=== PATIENT | female | born 1965 | race Caucasian/White ===

== ENCOUNTER 2016-08-14 07:59 | Emergency (ER) | payer OTHER ==
--- NOTE | 2016-08-14 08:11 | CPEKG ---
Heart Rate: 63 RR Interval: 952 P-R Interval: 124 QRSD Interval: 96 QT Interval: 456 QTC Interval: 467 P Austin: 70 QRS Austin: 80 T Wave Austin: 74 EKG Severity - NORMAL ECG - EKG Impression: SINUS RHYTHM Electronically Signed By: Ruiz Zamora 14-Aug-2016 14:34:52
--- NOTE | 2016-08-14 08:17 | EDPHY ---
H & P Stated Complaint: C/O intermittent,charp, tight feeling across chest x several days Time Seen by Provider: 08/14/16 08:16 - Personal History LMP (Females 10-55): 22-28 Days Ago Current Tetanus Diphtheria and Acellular Pertussis (TDAP): Yes - Medical/Surgical History Other PMH: HTN - Social History Smoking Status: Never smoked Constitutional: Initial Vital Signs Temperature (C) 36.7 C 08/14/16 08:00 Heart Rate 70 08/14/16 08:00 Respiratory Rate 16 08/14/16 08:00 Blood Pressure 171/91 H 08/14/16 08:00 O2 Sat (%) 100 08/14/16 08:00 O2 Delivery Mode Room Air Allergies/Adverse Reactions: Penicillins Allergy (Intermediate, Verified 08/14/16 08:01) Hives Sulfa (Sulfonamide Antibiotics) Allergy (Intermediate, Verified 08/14/16 08:01) Hives Home Medications: Medication Instructions Recorded Losartan Potassium [Cozaar 25 mg 25 mg PO 08/14/16 (*)] Medical Decision Making ED Course/Re-evaluation: CHIEF COMPLAINT: Chest pain HISTORY OF PRESENT ILLNESS: This patient is a 51 year old female who presents to the Emergency Department complaining of two episodes of brief chest pain beginning Sunday morning. She first experienced brief sharp pains to her right upper chest while doing dishes on Sunday morning. She describes the episode as lasting for a few minutes before resolving spontaneously. She was able to go for a long bike ride that afternoon without issue. Yesterday, she began to experience a sensation of chest tightness as though "her bra was too tight" lasting for approximately 5-10 minutes. She also reports an unusual sensation to her jaw "as though I had eaten something sour" resolving at the same time. She denies dizziness, diaphoresis, or nausea with either episode. Upon presentation today, she denies any chest pain. She has mild upper back pain that she attributes to musculoskeletal soreness following her bike ride. No recent travel. She was diagnosed with hypertension four years ago and had a normal echocardiogram at that time. REVIEW OF SYSTEMS: A 10 point review of systems was performed and is negative with the exception of the elements mentioned in the history of present illness. PHYSICAL EXAM: HR 70, BP 171/91, O2 Sat 100, RR 16. Temp noted General Appearance: Alert, well hydrated, appropriate, and non-toxic appearing. Head: Atraumatic without scalp tenderness or obvious injury Eyes: Pupils equal, round, reactive to light and accommodation, EOMI, no trauma , no injection. Ears: Clear bilaterally, no perforation, normal landmarks Nose: Atraumatic, no rhinorrhea, clear. Throat: There is no erythema or exudates, no lesions, normal tonsils, mucus membranes moist. Neck: Supple, 2+ carotid upstroke, nontender, no lymphadenopathy. Respiratory: No retractions, no distress, no wheezes, and no accessory muscle use. Lungs are clear to auscultation bilaterally. Cardiovascular: Regular rate and rhythm, no murmurs, rubs, or gallops. Bilateral carotid, radial, dorsalis pedis, and posterior tibial pulses intact. Good capillary refill all extremities. Gastrointestinal: Abdomen is soft, nontender, non-distended, no masses, no rebound, no guarding, no peritoneal signs. Musculoskeletal: Normal active ROM of all extremities, atraumatic. Neurological: Alert, appropriate, and interactive. The patient has normal DTRs and non-focal cranial nerves, motor, sensory, and cerebellar exam. Skin: No rashes, good turgor, no nodules on palpation. Past medical history: Hypertension. Past surgical history: Denies. Family history: Dad with CABG at age 68. Atrial fibrillation in mother. One sibling without cardiac history. Social history: No recent travel. DIAGNOSTICS/PROCEDURES/CRITICAL CARE TIME: EKG INTERPRETATION: The 12 lead EKG was interpreted by myself: sinus rhythm, rate 63; no ST/T changes. See hard copy and/or "tracemaster" electronic copy for interpretation. DIFFERENTIAL DIAGNOSIS: The differential diagnosis for the patient's chest pain included but was not limited to myocardial ischemia, pulmonary embolus, chest wall pain, pleural inflammation, and pulmonary infectious causes. MEDICAL DECISION MAKING: This normally healthy 51 year old female presents with intermittent short- lasting chest pains beginning two days prior to arrival. Each episode was less than 10 minutes, was without associated diaphoresis or nausea. She was able to undergo a long bike ride [place] [facility] [address] to [place] on Sunday without causing recurrence of symptoms. The patient is asymptomatic at time of presentation and has remained asymptomatic since yesterday. Suspicion is low for cardiac etiology, though she does have a familial history of coronary artery disease in father. Will proceed with EKG and labs, including D-dimer, but will likely discharge with full cardiac workup as outpatient. Labs reviewed and are largely within normal ranges. D-dimer is negative. Troponin is negative. Chest x-ray reviewed by myself and is normal. 910: Consultation with Dr. Vidya Wakefield, cardiology, who is aware of the patient' s case and will follow-up with her as an outpatient this week. 926: I discussed lab and imaging results with the patient who is relieved. I discussed with her strict return precautions including recurrence of symptoms. She will be discharged home in good condition with instructions to follow-up with cardiology this week. - Data Points Laboratory Results: Laboratory Results 08/14/16 08:20 08/14/16 08:20 08/14/16 08/14/16 08/14/16 08:20 08:20 08:20 WBC 7.29 10^3/uL 10^3/uL (3.80-9.50) RBC 4.41 10^6/uL 10^6/uL (4.18-5.33) Hgb 14.0 g/dL g/dL (12.6-16.3) Hct 40.7 % % (38.0-47.0) MCV 92.3 fL fL (81.5-99.8) MCH 31.7 pg pg (27.9-34.1) MCHC 34.4 g/dL g/dL (32.4-36.7) RDW 13.4 % % (11.5-15.2) Plt Count 251 10^3/uL 10^3/uL (150-400) MPV 9.9 fL fL (8.7-11.7) Neut % (Auto) 56.1 % % (39.3-74.2) Lymph % (Auto) 31.7 % % (15.0-45.0) [place] % (Auto) 8.0 % % (4.5-13.0) Eos % (Auto) 3.6 % % (0.6-7.6) Baso % (Auto) 0.5 % % (0.3-1.7) Nucleat RBC Rel Count 0.0 % % (0.0-0.2) Absolute Neuts (auto) 4.09 10^3/uL 10^3/uL (1.70-6.50) Absolute Lymphs (auto) 2.31 10^3/uL 10^3/uL (1.00-3.00) Absolute Monos (auto) 0.58 10^3/uL 10^3/uL (0.30-0.80) Absolute Eos (auto) 0.26 10^3/uL 10^3/uL (0.03-0.40) Absolute Basos (auto) 0.04 10^3/uL 10^3/uL (0.02-0.10) Absolute Nucleated RBC 0.00 10^3/uL 10^3/uL (0-0.01) Immature Gran % 0.1 % % (0.0-1.1) Immature Gran # 0.01 10^3/uL 10^3/uL (0.00-0.10) D-Dimer < 0.27 ug/mLFEU ug/mLFEU (0.00-0.50) Sodium 141 mEq/L mEq/L (134-144) Potassium 3.7 mEq/L mEq/L (3.5-5.2) Chloride 104 mEq/L mEq/L (97-110) Carbon Dioxide 26 mEq/l mEq/l (22-31) Anion Gap 11 mEq/L mEq/L (8-16) BUN 22 mg/dL mg/dL (7-23) Creatinine 0.9 mg/dL mg/dL (0.6-1.0) Estimated GFR > 60 Glucose 107 mg/dL H mg/dL (70-100) Calcium 8.9 mg/dL mg/dL (8.5-10.4) Troponin I < 0.012 ng/mL ng/mL (0-0.034) NT-Pro-B Natriuret Pep 59 pg/mL pg/mL (0-125) Departure - Departure Disposition: Home, Routine, Self-Care Clinical Impression: Atypical chest pain Condition: Good Instructions: Chest Pain (ED) Additional Instructions: 1. Return to the Emergency Department immediately with: Repeat episodes of chest pain or chest tightness, nausea or vomiting, dizziness or lightheadedness , pain radiating to your arm, neck, or jaw, or for other serious concerns. 2. Dr. Wakefield's office will call you today to schedule a follow-up appointment with cardiology. Referrals: Sue Coulter PA [Primary Care Provider] - As per Instructions
[2016-08-14 08:33] LABS: % IMMATURE GRANULYOCYTES 0.1 % (0.0-1.1); ABSOLUTE IMMATURE GRANULOCYTES 0.01 10^3/uL (0.00-0.10); ADD DIFF? NO; ADD MORPH? NO; ADD SCAN? NO; ATYPICAL LYMPHOCYTE FLAG 20 (0-99); FRAGMENT RBC FLAG 0 (0-99); HEMATOCRIT 40.7 % (38.0-47.0); LEFT SHIFT FLG 0 (0-99); LIPEMIA HEMOLYSIS FLAG 90 (0-99); MEAN CELL HEMOGLOBIN 31.7 pg (27.9-34.1); MEAN CELL HEMOGLOBIN CONCENTR. 34.4 g/dL (32.4-36.7); MEAN CELL VOLUME 92.3 fL (81.5-99.8); MEAN PLATELET VOLUME 9.9 fL (8.7-11.7); PLATELET CLUMPS FLAG 20 (0-99); PLATELET COUNT 251 10^3/uL (150-400); RED BLOOD CELL COUNT 4.41 10^6/uL (4.18-5.33); RED CELL DISTRIBUTION WIDTH 13.4 % (11.5-15.2)
[2016-08-14 08:45] LABS: ANION GAP 11 mEq/L (8-16); CALCIUM 8.9 mg/dL (8.5-10.4); CARBON DIOXIDE 26 mEq/l (22-31); CHLORIDE 104 mEq/L (97-110); CREATININE 0.9 mg/dL (0.6-1.0); GLOMERULAR FILTRATION RATE > 60; GLUCOSE 107 mg/dL (70-100); POTASSIUM 3.7 mEq/L (3.5-5.2); SODIUM 141 mEq/L (134-144)
[2016-08-14 08:57] LABS: TROPONIN I < 0.012 ng/mL (0-0.034)
[2016-08-14 09:31] VITALS: BP 137/85; PULSE 64; RESP 18; TEMP 98.4; O2SAT 97
== END 2016-08-14 09:30 | disposition home or self-care (01) ==
DX: R07.89 Other chest pain (principal); I10 Essential (primary) hypertension